=== PATIENT | female | born 1985 | race American Indian/Alaskan Native ===

== ENCOUNTER 2017-08-15 09:18 | Inpatient (IN) | payer MEDICAID, OTHER ==
[2017-08-15] MEDS ORDERED: SUBLIMAZE IV ONE (10:00)
[2017-08-15] MEDS ORDERED: SUBLIMAZE ONE (10:09)
--- NOTE | 2017-08-15 10:25 | History and Physical Report ---
History of Present Illness Date of examination: 08/15/17 Date of admission: 08/15/17 10:05 History of present illness: Patient presents to labor and delivery with complaints of regular contractions and was in active labor. On presentation patient is a cervix of 5-6 cm and was rossy regularly. Patient was admitted and rapidly progressed to full dilatation and delivery before my arrival. Menstrual History Regularity: irregular Duration: 5 LMP reliability: unknown test type: urine test Date: 03/19/2017 BC at conception: none Planned ? no EDC Calculations EDC Confirmation: 09/13/2017 Past History : 7 Term Births: 2 Living Children: 2 Elect. Ab: 2 Spont. Ab: 1 Ectopics: 1 # 1 Delivery date: 2004 Weeks Gestation: 40 Delivery type: Delivery location: [facility] Infant Sex: Female weight: 6-14 Comments: no complications # 2 Delivery date: 2007 Delivery type: EAB # 3 Delivery date: 2007 Weeks Gestation: 40 Delivery type: Delivery location: [facility] Sex: Female weight: 7-4 Comments: no complications # 4 Delivery date: 2015 Delivery type: EAB # 5 Delivery date: 2016 Delivery type: ectopic Delivery location: [facility] Comments: (R) salpingectomy # 6 Delivery date: 2016 Delivery type: SAB [place] [facility] [place] Medical History: Negative Past Medical History Past Surgical History: CUSHION FORMER Surgery (2016) (R) salpingectomy LEEP 2005 Past Medical History 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 of genital herpes: no Partner hx. of genital herpes: no Rash, Viral, or Febrile illness since last LMP? no Varicella/Chicken Pox Status: Previous Disease TB Risk: yes Genetic History Congenital Heart Defect: Mom: no Dad: no Allen Disease: Mom: no Dad: no Thalassemia Mom: no Dad: no Neural Tube Defect Mom: no Dad: no Down's Syndrome Mom: no Dad: no Landon-Sachs Mom: no Dad: no Sickle Cell Disease/Trait Mom: no Dad: no Hemophilia Mom: no Dad: no Muscular Dystrophy Mom: no Dad: no Cystic Fibrosis Mom: no Dad: no [place] Chorea Mom: no Dad: no Mental Retardation Mom: no Dad: no Fragile X Mom: no Dad: no Other Genetic/Chromosomal Disorder Mom: no Dad: no Child w/other defect Mom: no Dad: no Enviromental Exposures Enviromental Exposures Reviewed Xray Exposure: no Medication, drug, or alcohol use since LMP: no Chemical/Other Exposure: no Exposure to Cat Liter: no Hx of Parvovirus (Fifth Disease): no 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 Current Allergies (reviewed today): No known allergies Past History Past Medical History: other (see HPI) Past Surgical History: other (see HPI) CUSHION FORMER History: abnormal PAP smear, herpes, other (see HPI) Family/Genetic History: other (HPI) Social history: other (HPI) - Obstetrical History Expected Date of Delivery: 09/13/17 Actual Gestation: 35 Week(s) 6 Day(s) Medications and Allergies Allergies Allergy/AdvReac Type Severity Reaction Status Date / Time No Known Allergies Allergy Unverified 12/20/12 16:44 Home Medications Medication Instructions Recorded Confirmed Last Taken Type Cyclobenzaprine [Flexeril] 10 mg PO TID PRN #12 tablet 12/20/12 08/15/17 Unknown Rx Hydrocodone Bit/Acetaminophen 1 each PO Q4-6H PRN #15 tablet 12/20/12 08/15/17 Unknown Rx [Lortab 5-500 Tablet] Complete Caplet 1 cap PO DAILY 08/15/17 08/15/17 08/14/17 History 1 Active Meds: Active Medications Butorphanol Tartrate (Stadol) 2 mg IV Q2H PRN PRN Reason: Labor Pain Lactated Ringer's (Lactated Ringers) 1,000 mls @ 999 mls/hr IV BOLUS ONE Stop: 08/15/17 11:30 - Vital Signs Vital signs: Vital Signs Pulse BP 92 H 133/63 08/15/17 09:37 08/15/17 09:37 Temp Pulse Resp BP Pulse Ox 89 133/63 98 08/15/17 09:59 08/15/17 09:37 08/15/17 09:59 - Physical Exam Breasts: Positive: deferred Cardiovascular: Regular rate Lungs: Positive: Normal air movement Abdomen: Positive: normal appearance, soft Genitourinary (Female): Positive: other (inspection of the liver patient had no lacerations) Vagina: Positive: normal moisture Uterus: Positive: enlarged Anus/Rectum: Positive: normal perianal skin Results Result Diagrams: 08/15/17 10:05 All other labs normal. Assessment and Plan - Patient Problems (1) labor with delivery Current Visit: Yes Status: Acute Plan to address problem: Patient will precipitate delivery. Will admit to routine care. (2) 35 to 36 weeks gestation of Current Visit: Yes Status: Acute (3) HSV-2 infection complicating Current Visit: Yes Status: Acute Qualifiers: Trimester: third trimester Qualified Code(s): O98.513 - Other viral diseases complicating , third trimester; B00.9 - Herpesviral infection , unspecified
[2017-08-15] MEDS ORDERED: LACTATED RINGERS 1,000 ML IV ONE (10:30)
[2017-08-15] MEDS ORDERED: XYLOCAINE 2% INFILTRATI NR (10:30)
[2017-08-15] MEDS ORDERED: STADOL IV PRN (10:30)
[2017-08-15] MEDS ORDERED: POLYCILLIN/NS 2 GM/100 ML 2 GM/100 ML BAG IV NR (10:30)
[2017-08-15 10:40] LABS: Hematocrit 32.7 % (30.3-42.9); Hemoglobin 10.5 gm/dl (10.1-14.3); Red Blood Count 4.38 M/mm3 (3.65-5.03)
[2017-08-15 10:41] LABS: Basophils # (Auto) 0.1 K/mm3 (0.0-0.1); Basophils % (Auto) 0.4 % (0.0-1.8); Lymphocytes % (Auto) 7.5 % (13.4-35.0); Mean Corpuscular HGB Conc 32 % (30-34); Mean Corpuscular Hemoglobin 24 pg (28-32); Mean Corpuscular Volume 75 fl (79-97); Mean Platelet Volume 7.3 fl (6-12); Monocytes # (Auto) 0.8 K/mm3 (0.0-0.8); Monocytes % (Auto) 6.4 % (0.0-7.3); Platelet Count 187 K/mm3 (140-440); Red Cell Distribution Width 15.2 % (13.2-15.2)
[2017-08-15] MEDS ORDERED: ePHEDrine SULFATE IV PRN (11:00)
[2017-08-15] MEDS ORDERED: PITOCin/NS 20 UNIT/1000ML DRIP 20 UNITS/1,000 ML BAG IV SCH ×2 (11:00)
[2017-08-15] MEDS ORDERED: PHENERGAN PO PRN ×2 (11:00→13:50)
[2017-08-15] MEDS ORDERED: LACTATED RINGERS 1,000 ML IV SCH (11:00)
[2017-08-15] MEDS ORDERED: BRETHINE SUB-Q PRN (11:00)
[2017-08-15] MEDS ORDERED: BRETHINE IVP PRN (11:00)
[2017-08-15] MEDS ORDERED: SODIUM CHLORIDE FLUSH SYRINGE 10 ML IV NR (13:50)
[2017-08-15] MEDS ORDERED: DULCOLAX PR PRN (13:50)
[2017-08-15] MEDS ORDERED: MILK OF MAGNESIA PO PRN (13:50)
[2017-08-15] MEDS ORDERED: LANSINOH TP PRN (13:50)
[2017-08-15] MEDS ORDERED: BENADRYL PO PRN (13:50)
[2017-08-15] MEDS ORDERED: TYLENOL PO PRN (13:50)
[2017-08-15] MEDS ORDERED: TUCKS PAD TP PRN (13:50)
[2017-08-15] MEDS: PERCOCET 5/325 PO PRN (14:20)
--- NOTE | 2017-08-15 15:39 | Procedure Note ---
OB Delivery Note - Delivery Date of Delivery: 08/15/17 Surgeon: ARMANDO DENNISON Estimated blood loss: 300cc - Vaginal Delivery presentation: vertex Delivery position: OA Intrapartum events: precipitous labor- <3hr Delivery induction: none Delivery monitor: external FHT Route of delivery: Delivery placenta: spontaneous Episiotomy: none Delivery laceration: none Anesthesia: none Delivery comments: Patient with precipitous delivery by nurse arrival - A at 1 minute: 1 at 5 minutes: 7 Infant Gender: Female (please see nurse's note for detail.Initially crying infant had decompensation which the in NICU team arrived and performed resuscitation. Delivery note with details upon my arrival arrival the was doing well breathing resolved and then held by the mother)
[2017-08-15] MEDS: MOTRIN PO SCH (18:22)
[2017-08-16] MEDS: PERCOCET 5/325 PO PRN ×2 (00:06→16:50)
[2017-08-16] MEDS: MOTRIN PO SCH ×4 (00:06→21:20)
[2017-08-16 02:04] LABS: Hematocrit 27.2 % (30.3-42.9); Hemoglobin 9.1 gm/dl (10.1-14.3)
--- NOTE | 2017-08-16 08:26 | Progress Note ---
Assessment and Plan - Patient Problems (1) labor with delivery Current Visit: Yes Status: Acute Plan to address problem: We'll continue normal care. Patient is pumping breastmilk of present. (2) 35 to 36 weeks gestation of Current Visit: Yes Status: Acute (3) HSV-2 infection complicating Current Visit: Yes Status: Acute Qualifiers: Trimester: third trimester Qualified Code(s): O98.513 - Other viral diseases complicating , third trimester; B00.9 - Herpesviral infection , unspecified (4) Anemia due to acute blood loss Current Visit: Yes Status: Acute Plan to address problem: Will recheck H&H this morning. Subjective - Subjective Date of service: 08/16/17 Patient reports: appetite normal, voiding normally, pain well controlled [place]: in NICU (with elevated white blood count being evaluated for infection) Objective - Vital Signs Latest vital signs: Vital Signs Temp Pulse Resp BP BP Pulse Ox 08/16/17 00:00 98.6 F 77 16 103/64 08/15/17 17:55 99.3 F 85 18 126/61 98 08/15/17 14:20 20 08/15/17 13:30 98.7 F 84 20 122/57 08/15/17 12:27 83 133/62 08/15/17 12:11 94 H 111/58 08/15/17 11:56 82 121/58 08/15/17 11:45 99.0 F 18 08/15/17 11:41 93 H 130/63 08/15/17 09:59 89 98 08/15/17 09:58 53 L 86 08/15/17 09:53 100 H 98 08/15/17 09:48 93 H 96 08/15/17 09:43 93 H 98 08/15/17 09:38 94 H 96 08/15/17 09:37 92 H 133/63 Intake and Output 08/15/17 08/16/17 08/16/17 22:59 06:59 14:59 Intake Total 360 600 Output Total 300 Balance 60 600 Intake: Oral 360 300 Intake, Free Water 300 Output: Urine 300 Void 300 Other: Total, Intake Amount 360 300 Total, Output Amount 300 - Exam Breasts: Present: deferred Cardiovascular: Present: Regular rate Lungs: Present: Normal air movement Abdomen: Present: normal appearance, soft, normal bowel sounds Uterus: Present: firm, fundal height below umbilicus Extremities: Present: edema - Labs Labs: Abnormal lab results 08/15/17 08/16/17 Range/Units 10:05 01:09 WBC 12.9 H (4.5-11.0) K/mm3 Hgb 9.1 L (10.1-14.3) gm/dl Hct 27.2 L (30.3-42.9) % MCV 75 L (79-97) fl MCH 24 L (28-32) pg Lymph % (Auto) 7.5 L (13.4-35.0) % Lymph # 1.0 L (1.2-5.4) K/mm3 Seg Neutrophils % 85.7 H (40.0-70.0) % Seg Neutrophils # 11.1 H (1.8-7.7) K/mm3
[2017-08-16 09:02] LABS: Hematocrit 28.2 % (30.3-42.9); Hemoglobin 9.5 gm/dl (10.1-14.3)
[2017-08-16] MEDS ORDERED: PRENATAL VITAMIN PO SCH (10:00)
[2017-08-17] MEDS: PERCOCET 5/325 PO PRN ×3 (00:50→11:32)
[2017-08-17] MEDS: MOTRIN PO SCH ×3 (02:30→16:40)
--- NOTE | 2017-08-17 06:02 | Discharge Summary ---
Providers - Providers Date of Admission: 08/15/17 10:05 Date of discharge: 08/17/17 (pt understanding concerning d/c) Attending physician: ARMANDO DENNISON 08/15/17 13:50 Consult to Accounts Receivable Bookkeeper [CONS] Routine Reason For Exam: assistance with , SNS Primary care physician: ARMANDO DENNISON Hospitalization Reason for admission: active labor Delivery: Episiotomy: none Laceration: none Other procedures: none complications: none baby: female (pt remains in NICU) Hospital course: precipitous delivery complications baby remains in NICU Pt resting Pt c/o pain in left leg behind and below the knee Will order US to r/ o DVT. VSS FF below umb Lochia small Perineum intact H&H 01/01 No s/sx of anemia Doing well s/p vag delivery, with exception of left leg pain. Doppler ordered. P: continue pathway; get Doppler of leg. D/C instructions given. Pt declines BC @ this time RTO 4 weeks. Condition at discharge: Good Disposition: DC-01 TO HOME OR SELFCARE - Discharge Diagnoses (1) Spontaneous vaginal delivery Status: Acute Comment: RTO 4 weeks PP care Plan - Provider Discharge Summary Activity: routine, no sex for 6 weeks, no heavy lifting 4 weeks, no strenuous exercise Diet: routine Instructions: routine Additional instructions: [] Smoking cessation referral if applicable(refer to patient education folder for contact #) [] Refer to [facility] Booklet Call your doctor immediately for: * Fever > 100.5 * Heavy vaginal bleeding ( >1 pad per hour) * Severe persistent headache * Shortness of breath * Reddened, hot, painful area to leg or breast * Drainage or odor from incision. * Keep incision clean and dry at all times and follow doctor's instructions regarding bathing/showering - Follow up plan Follow up: ARMANDO DENNISON MD [Primary Care Provider] - 09/15/17 (Congratulations! Please call [phone] to schedule your visit in 4 weeks. Continue taking your vitamins. Over the counter Motrin/Ibuprofen for cramping. Call with )
[2017-08-17 17:24] VITALS: BP 108/59
== END 2017-08-17 18:30 | disposition home or self-care (01) | DRG 774 ==
LOC: TRG 09:18 → LD 10:05 → OB 13:15
PROVIDERS: ADMIT Obstetrics & Gynecology; ATTEND Obstetrics & Gynecology
PROC: 10E0XZZ Delivery of Products of Conception, External Approach (ICD-10-PCS; principal; 2017-08-15)
DX: O60.14X0 Preterm labor third trimester with preterm delivery third trimester, not applicable or unspecified (principal); O98.32 Other infections with a predominantly sexual mode of transmission complicating childbirth; O62.3 Precipitate labor; O99.02 Anemia complicating childbirth; Z3A.35 35 weeks gestation of pregnancy; Z37.0 Single live birth; D62 Acute posthemorrhagic anemia; A60.00 Herpesviral infection of urogenital system, unspecified
CPT/HCPCS: 36415; 85014; 85018; 85025; 86592; 86850; 86900; 86901; 99211; A6250; G0463; J0290; J2590; J3010; J7120

== ENCOUNTER 2017-08-20 19:07 | Emergency (ER) | payer MEDICAID ==
[2017-08-20 20:33] LABS: INR 0.95 (0.87-1.13)
[2017-08-20 20:36] LABS: Eosinophils # (Auto) 0.1 K/mm3 (0.0-0.4); Eosinophils % (Auto) 1.1 % (0.0-4.3); Hematocrit 29.5 % (30.3-42.9); Hemoglobin 9.5 gm/dl (10.1-14.3); Mean Corpuscular HGB Conc 32 % (30-34); Mean Corpuscular Hemoglobin 24 pg (28-32); Mean Corpuscular Volume 75 fl (79-97); Monocytes # (Auto) 0.5 K/mm3 (0.0-0.8); Monocytes % (Auto) 6.8 % (0.0-7.3); Platelet Count 230 K/mm3 (140-440); Red Blood Count 3.95 M/mm3 (3.65-5.03); Red Cell Distribution Width 15.5 % (13.2-15.2)
[2017-08-20] MEDS ORDERED: TYLENOL PO ONE (20:39)
[2017-08-20 20:52] LABS: BUN/Creatinine Ratio 9; Blood Urea Nitrogen 7 mg/dL (7-17); Hemolysis Index 8
[2017-08-20 20:58] LABS: Bacteria,Urine 1+ /HPF (Negative); Bilirubin,Urine NEG (Negative); Blood,Urine LG (Negative); Color,Urine Yellow (Yellow); Mucus,Urine FEW /HPF; Protein,Urine <15 mg/dL mg/dL (Negative); Urobilinogen,Urine < 2.0 mg/dL (<2.0)
--- NOTE | 2017-08-21 00:55 | Emergency Department Report ---
ED Extremity Problem HPI - General Chief complaint: Extremity Injury, Lower Stated complaint: SEVERE LEG PAIN Time Seen by Provider: 08/21/17 00:51 Source: patient Mode of arrival: Ambulatory Limitations: No Limitations - History of Present Illness Initial comments: Patient is 1 week, A0, which I'll board 4 weeks premature, with difficulty breathing, and child is still in NICU, but mother's delivery was generally uncomplicated, although she reports that she has been having increased pain and swelling of the left lower extremity approximately a day after , particularly behind the left knee, with pain being 9 out of 10. She had no complications with prior deliveries, and has no history of clotting disorders or blood dyscrasias. She has not had any fever chills or diaphoresis , but has localized redness and swelling at the back of her knee as her primary source of pain. MD Complaint: extremity pain (left, behind knee), extremity swelling (left) Onset/Timin -: week(s) (1) Location: left, lower extremity, knee History of Same: No -: No myalgia, No arthralgia, No fever, No associated dyspnea Radiation: none Severity scale (0 -10): 8 Quality: aching Consistency: constant Improves with: nothing Worsens with: nothing Associated Symptoms: denies other symptoms - Related Data Home Medications Medication Instructions Recorded Confirmed Last Taken Complete Caplet 1 cap PO DAILY 08/15/17 08/15/17 08/14/17 1 Previous Rx's Medication Instructions Recorded Last Taken Type Cyclobenzaprine [Flexeril] 10 mg PO TID PRN #12 tablet 12/20/12 Unknown Rx Hydrocodone Bit/Acetaminophen 1 each PO Q4-6H PRN #15 tablet 12/20/12 Unknown Rx [Lortab 5-500 Tablet] Oxycodone HCl/Acetaminophen 1 each PO Q6HR PRN #20 tablet 08/21/17 Unknown Rx [Percocet 7.5/325 mg] Allergies Allergy/AdvReac Type Severity Reaction Status Date / Time No Known Allergies Allergy Unverified 12/20/12 16:44 ED Review of Systems ROS: Stated complaint: SEVERE LEG PAIN Other details as noted in HPI Comment: All other systems reviewed and negative Constitutional: denies: chills, fever ENT: denies: ear pain, throat pain Respiratory: denies: cough, shortness of breath, wheezing Cardiovascular: denies: chest pain, palpitations Endocrine: no symptoms reported Gastrointestinal: denies: abdominal pain, nausea, diarrhea Musculoskeletal: other (swelling behind left knee). denies: back pain, joint swelling, arthralgia Skin: change in color (behind knee, with swelling). denies: rash, lesions Neurological: denies: headache, weakness, paresthesias ED Past Medical Hx - Past Medical History Previous Medical History?: No Hx Hypertension: No Hx Congestive Heart Failure: No Hx Diabetes: No Hx Deep Vein Thrombosis: No Hx Renal Disease: No Hx Sickle Cell Disease: No Hx Seizures: No Hx Asthma: No Hx COPD: No Hx HIV: No - Surgical History Past Surgical History?: No - Social History Smoking Status: Former Smoker Substance Use Type: None - Medications Home Medications: Home Medications Medication Instructions Recorded Confirmed Last Taken Type Cyclobenzaprine [Flexeril] 10 mg PO TID PRN #12 tablet 12/20/12 08/15/17 Unknown Rx Hydrocodone Bit/Acetaminophen 1 each PO Q4-6H PRN #15 tablet 12/20/12 08/15/17 Unknown Rx [Lortab 5-500 Tablet] Complete Caplet 1 cap PO DAILY 08/15/17 08/15/17 08/14/17 History 1 Oxycodone HCl/Acetaminophen 1 each PO Q6HR PRN #20 tablet 08/21/17 Unknown Rx [Percocet 7.5/325 mg] ED Physical Exam - General Limitations: No Limitations General appearance: alert, in distress - Head Head exam: Present: atraumatic, normocephalic - Eye Eye exam: Present: PERRL, EOMI Pupils: Present: normal accommodation - ENT ENT exam: Present: normal exam, normal orophraynx - Neck Neck exam: Present: normal inspection. Absent: tenderness - Respiratory Respiratory exam: Present: normal lung sounds bilaterally. Absent: respiratory distress, wheezes, rales, rhonchi - Cardiovascular Cardiovascular Exam: Present: regular rate, normal heart sounds - GI/Abdominal GI/Abdominal exam: Present: soft. Absent: tenderness, guarding, rebound - Rectal Rectal exam: Present: deferred - Extremities Exam Extremities exam: Present: calf tenderness, other (swelling and redness behind left knee, mild erythema behind right knee, nontender) - Back Exam Back exam: Present: normal inspection - Neurological Exam Neurological exam: Present: alert, oriented X3, CN II-XII intact. Absent: motor sensory deficit - Psychiatric Psychiatric exam: Present: normal affect, normal mood - Skin Skin exam: Present: warm, dry ED Course Vital Signs 08/20/17 08/20/17 08/20/17 19:39 21:40 23:44 Temperature 99.0 F Pulse Rate 73 69 Respiratory 16 18 10 L Rate Blood Pressure 133/75 Blood Pressure [Right] O2 Sat by Pulse 100 Oximetry 08/20/17 08/20/17 08/21/17 23:45 23:56 00:00 Temperature 98.3 F Pulse Rate 75 68 53 L Respiratory 13 22 15 Rate Blood Pressure 122/79 122/79 122/79 Blood Pressure 122/79 [Right] O2 Sat by Pulse 97 98 98 Oximetry 08/21/17 08/21/17 08/21/17 00:16 00:30 00:46 Temperature Pulse Rate 57 L 63 65 Respiratory 15 16 15 Rate Blood Pressure 108/64 108/64 100/64 Blood Pressure [Right] O2 Sat by Pulse 97 96 96 Oximetry 08/21/17 08/21/17 08/21/17 01:00 01:16 01:27 Temperature Pulse Rate 57 L 58 L Respiratory 15 18 16 Rate Blood Pressure 100/64 113/66 Blood Pressure [Right] O2 Sat by Pulse 97 100 Oximetry ED Medical Decision Making - Lab Data Result diagrams: 08/20/17 20:08 08/20/17 20:08 - Medical Decision Making Patient has an elevated d-dimer, is recently , is at increased risk for thromboembolism, with significant pain and swelling behind the left knee. She will need vascular study performed urgently, and will return to radiology in the morning for Doppler vascular study. She was given initial dose of Lovenox in the emergency department, and also medication for analgesia. - Differential Diagnosis superficial thrombophlebitis, proximal thromboembolism, left or extremity Critical Care Time: No Critical care attestation.: If time is entered above; I have spent that time in minutes in the direct care of this critically ill patient, excluding procedure time. ED Disposition Clinical Impression: Left leg swelling Disposition: -01 TO HOME OR SELFCARE Is pt being admited?: No Does the pt Need Aspirin: No Condition: Stable Additional Instructions: We are concerned that you may have a blood clot in her left leg. You will need to come back to radiology tomorrow to have a Doppler ultrasound of your left leg. This discharge packet has a prescription and order for radiology to perform vascular study of her leg. Return to the radiology department with this order tomorrow at 8 AM to have the test done. If results are positive, you'll be directed for further care, either to the emergency room, or back to your primary care doctor. We have provided a prescription for pain, which he can take every 4-6 hours, and we have given U an ejection of anti-coagulant medicine to help thin your blood until you can have your test. Further care will be determined by the results of your tests. Prescriptions: Oxycodone HCl/Acetaminophen [Percocet 7.5/325 mg] 1 each PO Q6HR PRN #20 tablet PRN Reason: Pain Referrals: PRIMARY CARE, [Primary Care Provider] - 3-5 Days Time of Disposition: 02:01
[2017-08-21] MEDS ORDERED: NORCO 10/325 PO ONE (01:21)
[2017-08-21 01:23] VITALS: BP 113/66
[2017-08-21] MEDS ORDERED: LOVENOX SUB-Q ONE (01:26)
== END 2017-08-21 02:00 | disposition home or self-care (01) ==
LOC: ED 19:07
DX: M79.605 Pain in left leg (principal); Z87.891 Personal history of nicotine dependence
CPT/HCPCS: 36415; 80048; 81001; 85025; 85379; 85610; 96372; 99283; J1650

== ENCOUNTER 2017-08-21 08:55 | Outpatient (CLI) | payer MEDICAID ==
--- NOTE | 2017-08-24 17:05 | Vascular Lab Report ---
Left Lower Extremity Venous Duplex Study: Reason for Exam: Pain and swelling of the left lower extremity. Comments on the Right: A limited duplex study was done of the proximal veins of the right lower extremity. All veins visualized are freely compressible without evidence of internal echogenicity. Flow is spontaneous and phasic throughout. No evidence of acute or chronic thrombus is seen in any of the vessels visualized. Comments on the Left: An isolated area of superficial venous thrombosis is noted in the saphenous vein around the level of the knee. This appears to be acute. The remaining veins visualized are freely compressible without evidence of internal echogenicity. Spontaneous and phasic flow is present proximally. Impression: Acute superficial venous thrombosis of the left greater saphenous vein near the knee. No evidence of acute deep venous thrombosis in the left lower extremity.
== END 2017-08-21 08:56 | disposition home or self-care (01) ==
LOC: VAS 08:55
PROVIDERS: ATTEND Emergency Medicine
DX: I82.812 Embolism and thrombosis of superficial veins of left lower extremity (principal)

== ENCOUNTER 2017-08-21 10:17 | Emergency (ER) | payer MEDICAID ==
[2017-08-21 10:45] VITALS: BP 114/77
--- NOTE | 2017-08-21 11:44 | Emergency Department Report ---
ED Extremity Problem HPI - General Chief complaint: Extremity Problem,Nontraumatic Stated complaint: BILATERAL LEG PAIN/FOLLOW UP Time Seen by Provider: 08/21/17 11:11 Source: patient Mode of arrival: Ambulatory Limitations: No Limitations - History of Present Illness Initial comments: Patient is a 32-year-old Female who is status post vaginal delivery at 35 weeks. Who states that for the past several days she has had pain behind her left lower extremity. Patient states that the pain is been present and consistently worsening for the last several days. Patient was here last night and was told to return today for a ultrasound Doppler of the leg to rule out DVT. Patient denies any chest pain or pleuritic chest pain shortness of breath fevers chills nausea vomiting at this time. Patient states pain behind the leg is nonedematous very hers worse when she bends her knee. - Related Data Home Medications Medication Instructions Recorded Confirmed Last Taken Complete Caplet 1 cap PO DAILY 08/15/17 08/15/17 08/14/17 1 Previous Rx's Medication Instructions Recorded Last Taken Type Cyclobenzaprine [Flexeril] 10 mg PO TID PRN #12 tablet 12/20/12 Unknown Rx Hydrocodone Bit/Acetaminophen 1 each PO Q4-6H PRN #15 tablet 12/20/12 Unknown Rx [Lortab 5-500 Tablet] Aspirin [Aspirin TAB] 325 mg PO ONCE #10 tablet 08/21/17 Unknown Rx Cephalexin [Keflex] 500 mg PO Q12HR #14 cap 08/21/17 Unknown Rx Fluconazole [Diflucan TAB] 150 mg PO ONCE #1 tablet 08/21/17 Unknown Rx Oxycodone HCl/Acetaminophen 1 each PO Q6HR PRN #20 tablet 08/21/17 Unknown Rx [Percocet 7.5/325 mg] oxyCODONE /ACETAMINOPHEN [Percocet 1 tab PO Q6HR PRN #10 tablet 08/21/17 Unknown Rx 5/325] Allergies Allergy/AdvReac Type Severity Reaction Status Date / Time No Known Allergies Allergy Unverified 12/20/12 16:44 ED Review of Systems ROS: Stated complaint: BILATERAL LEG PAIN/FOLLOW UP Other details as noted in HPI Comment: All other systems reviewed and negative ED Past Medical Hx - Past Medical History Hx Hypertension: No Hx Congestive Heart Failure: No Hx Diabetes: No Hx Deep Vein Thrombosis: No Hx Renal Disease: No Hx Sickle Cell Disease: No Hx Seizures: No Hx Asthma: No Hx COPD: No Hx HIV: No - Social History Smoking Status: Current Every Day Smoker Substance Use Type: None - Medications Home Medications: Home Medications Medication Instructions Recorded Confirmed Last Taken Type Cyclobenzaprine [Flexeril] 10 mg PO TID PRN #12 tablet 12/20/12 08/15/17 Unknown Rx Hydrocodone Bit/Acetaminophen 1 each PO Q4-6H PRN #15 tablet 12/20/12 08/15/17 Unknown Rx [Lortab 5-500 Tablet] Complete Caplet 1 cap PO DAILY 08/15/17 08/15/17 08/14/17 History 1 Aspirin [Aspirin TAB] 325 mg PO ONCE #10 tablet 08/21/17 Unknown Rx Cephalexin [Keflex] 500 mg PO Q12HR #14 cap 08/21/17 Unknown Rx Fluconazole [Diflucan TAB] 150 mg PO ONCE #1 tablet 08/21/17 Unknown Rx Oxycodone HCl/Acetaminophen 1 each PO Q6HR PRN #20 tablet 08/21/17 Unknown Rx [Percocet 7.5/325 mg] oxyCODONE /ACETAMINOPHEN [Percocet 1 tab PO Q6HR PRN #10 tablet 08/21/17 Unknown Rx 5/325] ED Physical Exam - General Limitations: No Limitations General appearance: alert, in no apparent distress - Head Head exam: Present: atraumatic, normocephalic - Eye Eye exam: Present: normal appearance - ENT ENT exam: Present: mucous membranes moist - Neck Neck exam: Present: normal inspection - Respiratory Respiratory exam: Present: normal lung sounds bilaterally. Absent: respiratory distress, wheezes, rales, rhonchi - Cardiovascular Cardiovascular Exam: Present: regular rate, normal rhythm. Absent: systolic murmur, diastolic murmur, rubs, gallop - GI/Abdominal GI/Abdominal exam: Present: soft, normal bowel sounds - Extremities Exam Extremities exam: Present: normal inspection, other (patient has some tenderness and erythema to the posterior left knee with no fluctuance minimal induration.) - Back Exam Back exam: Present: normal inspection - Neurological Exam Neurological exam: Present: alert, oriented X3 - Psychiatric Psychiatric exam: Present: normal affect, normal mood - Skin Skin exam: Present: warm, dry, intact, normal color. Absent: rash ED Course Vital Signs 08/21/17 10:41 Temperature 98.6 F Pulse Rate 68 Respiratory 16 Rate Blood Pressure 114/77 O2 Sat by Pulse 99 Oximetry ED Medical Decision Making - Radiology Data Radiology results: report reviewed (patient's ultrasound was reviewed was negative for DVT but she does have a superficial thrombophlebitis in the superficial saphenous vein at the level of the knee.) - Medical Decision Making She'll be treated for superficial thrombophlebitis and will be discharged home. Critical care attestation.: If time is entered above; I have spent that time in minutes in the direct care of this critically ill patient, excluding procedure time. ED Disposition Clinical Impression: Left leg swelling Superficial thrombophlebitis Qualifiers: Superficial thrombophlebitis-Involved body area: lower extremity Laterality: left Qualified Code(s): I80.02 - Phlebitis and thrombophlebitis of superficial vessels of left lower extremity Disposition: DC-01 TO HOME OR SELFCARE Is pt being admited?: No Does the pt Need Aspirin: No Condition: Stable Instructions: Superficial Thrombophlebitis (ED) Prescriptions: Aspirin [Aspirin TAB] 325 mg PO ONCE #10 tablet Cephalexin [Keflex] 500 mg PO Q12HR #14 cap Fluconazole [Diflucan TAB] 150 mg PO ONCE #1 tablet oxyCODONE /ACETAMINOPHEN [Percocet 5/325] 1 tab PO Q6HR PRN #10 tablet PRN Reason: Pain Referrals: VASHTI LEVIN MD [Primary Care Provider] - 3-5 Days
== END 2017-08-21 11:45 | disposition home or self-care (01) ==
LOC: ED 10:17
DX: I80.02 Phlebitis and thrombophlebitis of superficial vessels of left lower extremity (principal); R22.42 Localized swelling, mass and lump, left lower limb; F17.200 Nicotine dependence, unspecified, uncomplicated; Z79.82 Long term (current) use of aspirin
CPT/HCPCS: 99282